=== PATIENT | male | born 1990 | race Caucasian/White ===

== ENCOUNTER 2020-11-01 12:09 | Emergency (ER) | payer OTHER, BC ==
[~2020-11-01] VITALS: Ht 182.9 cm; Wt 86.2 kg
== END 2020-11-01 14:45 | disposition home or self-care (01) ==
LOC: ER 12:09
DX: S89.92XA Unspecified injury of left lower leg, initial encounter (principal); V03.90XA Pedestrian on foot injured in collision with car, pick-up truck or van, unspecified whether traffic or nontraffic accident, initial encounter; Y92.410 Unspecified street and highway as the place of occurrence of the external cause
CPT/HCPCS: 73552; 73590; 73600; 73630; 99283-25